=== PATIENT | female | born 1980 | race Caucasian/White ===

== ENCOUNTER 2025-03-11 07:30 | Inpatient (IN) | payer SELFPAY ==
[~2025-03-11] VITALS: Ht 162.6 cm; Wt 86.8 kg
[2025-03-11 07:37] VITALS: O2SAT 100
[2025-03-11 08:19] LABS: BASOPHILS % 0.3 % (0.0-2.0); EOSINOPHILS % 1.3 % (0.0-5.0); HEMATOCRIT. 41.6 % (36.0-48.0); HEMOGLOBIN. 14.3 g/dL (12.0-16.0); LYMPHOCYTES % 16.8 % (20.0-50.0); MEAN PLATELET VOLUME 9.4 fl (7.4-10.4); MONOCYTES % 6.0 % (2.0-8.0); NEUTROPHILS % 75.6 % (40.0-76.0); PLATELET 249 x1000/uL (130-400); RED BLOOD CELL COUNT 4.60 mill/uL (4.2-5.4); RED CELL DISTRIBUTION WIDTH 12.6 % (11.6-14.6)
[2025-03-11 08:40] LABS: CREATININE 0.7 mg/dL (0.6-1.0); UREA NITROGEN BLOOD 7 mg/dL (9-23)
[2025-03-11 08:54] LABS: B-HCG QUANTITATIVE 7600 mIU/mL (<6)
[2025-03-11 09:12] LABS: HCG SCREEN POSITIVE
[2025-03-11 14:30] VITALS: BP 117/84; PULSE 97; RESP 18; TEMP 36.0844
[2025-03-11] MEDS ORDERED: LACTATED RINGERS 1,000 ML IV SCH (15:00)
[2025-03-11 16:00] VITALS: BP 99/59; PULSE 70; RESP 16; TEMP 36.6; O2SAT 100
[2025-03-11 18:07] LABS: HEPATITIS C AB NON REACTIVE (Neg) (Negative)
[2025-03-12 08:00] VITALS: BP 120/68; PULSE 73; RESP 18; TEMP 36.4; O2SAT 98
[2025-03-12 12:00] VITALS: BP 109/73; PULSE 69; RESP 20; TEMP 36.2; O2SAT 100
[2025-03-12 16:00] VITALS: BP 113/65; PULSE 74; RESP 18; TEMP 36.5; O2SAT 100
[2025-03-12 20:00] VITALS: BP 97/59; PULSE 77; RESP 19; TEMP 36.4; O2SAT 98
[2025-03-13] VITALS: BP 105/70; PULSE 64; RESP 16; TEMP 36.4; O2SAT 97
[2025-03-13 04:00] VITALS: BP 95/51; PULSE 75; RESP 19; TEMP 36.7; O2SAT 100
[2025-03-13 08:00] VITALS: BP 104/67; PULSE 79; RESP 17; TEMP 36.5; O2SAT 100
[2025-03-13 08:05] LABS: BASOPHILS % 0.4 % (0.0-2.0); EOSINOPHILS % 2.7 % (0.0-5.0); HEMATOCRIT. 38.7 % (36.0-48.0); HEMOGLOBIN. 13.3 g/dL (12.0-16.0); LYMPHOCYTES % 29.6 % (20.0-50.0); MEAN PLATELET VOLUME 9.1 fl (7.4-10.4); MONOCYTES % 7.4 % (2.0-8.0); NEUTROPHILS % 59.9 % (40.0-76.0); PLATELET 239 x1000/uL (130-400); RED BLOOD CELL COUNT 4.24 mill/uL (4.2-5.4); RED CELL DISTRIBUTION WIDTH 12.8 % (11.6-14.6)
[2025-03-13 12:00] VITALS: BP 98/59; PULSE 81; RESP 18; TEMP 37.1; O2SAT 100
[2025-03-13 16:00] VITALS: BP 107/62; PULSE 71; RESP 18; TEMP 36.5; O2SAT 98
[2025-03-13 20:00] VITALS: BP 106/62; PULSE 78; RESP 18; TEMP 36.4; O2SAT 100
[2025-03-14 04:00] VITALS: BP 110/68; PULSE 76; RESP 18; TEMP 36.2; O2SAT 99
[2025-03-14 06:05] LABS: CREATININE 0.7 mg/dL (0.6-1.0); UREA NITROGEN BLOOD < 5 mg/dL (9-23)
[2025-03-14 06:07] LABS: PHOSPHORUS 3.5 mg/dL (2.5-4.9)
[2025-03-14 06:32] LABS: BASOPHILS % 0.3 % (0.0-2.0); EOSINOPHILS % 3.2 % (0.0-5.0); HEMATOCRIT. 41.0 % (36.0-48.0); HEMOGLOBIN. 13.6 g/dL (12.0-16.0); LYMPHOCYTES % 33.9 % (20.0-50.0); MEAN PLATELET VOLUME 9.5 fl (7.4-10.4); MONOCYTES % 7.8 % (2.0-8.0); NEUTROPHILS % 54.8 % (40.0-76.0); PLATELET 225 x1000/uL (130-400); RED BLOOD CELL COUNT 4.44 mill/uL (4.2-5.4); RED CELL DISTRIBUTION WIDTH 12.9 % (11.6-14.6)
[2025-03-14 08:00] VITALS: BP 112/70; PULSE 75; RESP 18; TEMP 36.7; O2SAT 99
[2025-03-14 11:56] VITALS: BP 112/78; PULSE 76; RESP 18; TEMP 98.2
[2025-03-14 12:00] VITALS: BP 110/74; PULSE 74; RESP 18; TEMP 36.7; O2SAT 99
== END 2025-03-14 13:15 | disposition home or self-care (01) | DRG 566 ==
LOC: ER 07:30 → 6EST 09:52 → EDBEDREQ 09:55 → EDBEDREQTM 09:55 → ENRESERV 13:59
PROVIDERS: ADMIT Internal Medicine; ATTEND Internal Medicine
DX: O20.0 Threatened abortion (principal)
CPT/HCPCS: 36415; 76801; 80048; 83735; 84100; 84702; 84703; 85025; 86705; 86850; 86900; 87340; 99285; A4606